=== PATIENT | male | born 1925 | race Caucasian/White ===

== ENCOUNTER 2016-07-15 12:43 | Inpatient (IN) | payer OTHER, MEDICARE ==
[~2016-07-15] VITALS: Ht 175.3 cm; Wt 74.9 kg
--- NOTE | ~2016-07-15 | EKG ---
[address] [place] [address] ELECTROCARDIOGRAM REPORT Name: ZOHRA HASKINSDANY Carnes Room #: 304- ADM IN M.R.#: [id number] Admission: 07/15/16 Attend Phys: Cuate Hermosillo Discharge: Date of : [birth year] Report #: [id number] THIS REPORT FOR: //name// [facility] Test Date: 2016-07-16 Test Time: 07:18:19 Pat Name: TUCKER HASKINS Department: Room: 304 Gender: M Childcare Aide: jocelyne : 1925 Requested By: Yanet Whelan Order Number: [id number] MD: Henry Barrientos Measurements Intervals [place] Rate: 80 P: 75 [place]: 199 QRS: 85 QRSD: 112 T: 60 QT: 489 QTc: 565 Interpretive Statements Sinus rhythm Probable left atrial enlargement LVH with secondary repolarization abnormality Prolonged QT interval No previous ECGs available for comparison Electronically Signed On 07-16-2016 8:36:46 HEALTH PLAN SPECIALIST by Henry Barrientos [email or web address] <ELECTRONICALLY SIGNED> By: Henry Barrientos MD, [facility] 07/16/16 0836 7 7 Henry Barrientos MD, [facility] /EPI
--- NOTE | ~2016-07-15 | 2DMMODE ---
[facility] [address] 2 D/M-MODE ECHOCARDIOGRAM Name: DIVINECEBALLOS L Room #: 304-P [facility] IN ..#: [id number] Admission: 07/15/16 Attend Phys: Cuate Velasquez Discharge: Date of : [birth year] Date of Service: 07/17/16 1121 Report #: [id number] THIS REPORT FOR: //name// Transthoracic Echocardiography Ordering physician: Yanet Whelan Referring physician: Yanet Whelan [employer] Agent: RAN Hendricks Indications/History: SOA, HTN, Cardiomyopathy. BP: 178 / HR: 88bpm Height: 69in Weight: 164.7lb 84 Study data: M-mode, complete 2D, complete spectral Doppler, and color Doppler. Location: Bedside. Routine. Image quality was good. 2D measurements Normal Normal LVID ED 55.6mm 36-57 IVS ED 8.5mm 6-11 LVID ES 44mm 23-40 LVPW ED 9.8mm 6-11 LA volume 47ml/m2 16-28 AoRoot diam 29.3mm 21-37 index ED LVOT diameter 19mm 18-23 Findings: Left ventricle: The cavity size was at the upper limits of normal. Wall thickness was normal. Systolic function was moderately reduced. The estimated ejection fraction was in the range of 35% to 40%. Diffuse hypokinesis. Right ventricle: The cavity size was at the upper limits of normal. Systolic function was normal. Right atrium: The atrium was dilated. Left atrium: The atrium was dilated. Volume index: 47ml/m2 (S). Aortic valve: Trileaflet; mildly thickened, mildly calcified leaflets. Doppler: There was no stenosis. Mild regurgitation. Peak velocity: 104.6cm/s (S). Mitral valve: Mildly calcified annulus. Doppler: There [facility] [address] [place] [address] 2 D/M-MODE ECHOCARDIOGRAM Name: TUCKER HASKINS Room #: 304-P [facility] IN M.R.#: [id number] Admission: 07/15/16 Attend Phys: Cuate Jeter Eva Discharge: Date of : [birth year] Date of Service: 07/17/16 1121 Report #: [id number] was no evidence for stenosis. Moderate regurgitation. Peak E-wave velocity: 81.5cm/s. Peak gradient: 2.7mm Hg (D). Peak A-wave velocity: 78.4cm/s. Tricuspid valve: Structurally normal valve. Doppler: There was no evidence for stenosis. Mild-moderate regurgitation. Regurgitant peak velocity: 414.7cm/s. Peak RV-RA gradient: 69mm Hg (S). Pulmonic valve: Structurally normal valve. Doppler: There was no evidence for stenosis. Trivial regurgitation. Pericardium: There was no pericardial effusion. Aorta: Aortic root: The aortic root was normal in size. Pulmonary artery: Systolic pressure was estimated to be 79mm Hg. Diastolic function: Features are consistent with a pseudonormal left ventricular filling pattern, with concomitant abnormal relaxation and increased filling pressure (grade 2 diastolic dysfunction). Systemic veins: Inferior vena cava: The vessel was dilated; the respirophasic diameter changes were in the normal range (= 50%). Conclusions 1. Left ventricle: The cavity size was at the upper limits of normal. Wall thickness was normal. Systolic function was moderately reduced. The estimated ejection fraction was in the range of 35% to 40%. Diffuse hypokinesis. 2. Right atrium: The atrium was dilated. 3. Left atrium: The atrium was dilated. 4. Aortic valve: Trileaflet; mildly thickened, mildly calcified leaflets. Mild regurgitation. 5. Mitral valve: Mildly calcified annulus. Moderate regurgitation. 6. Pulmonic valve: Trivial regurgitation. 7. Tricuspid valve: Mild-moderate regurgitation. 8. Pulmonary arteries: Systolic pressure was estimated to be 79mm Hg. <ELECTRONICALLY SIGNED> By: Lionel Castañeda MD 07/17/16 1305 1121 1305 Lionel Castañeda MD /itzel
--- NOTE | ~2016-07-15 | EKG ---
[place] [address] [facility] [place] [address] ELECTROCARDIOGRAM REPORT Name: DIVINECEBALLOS L Room #: 170-15 ADM IN M.R.#: [id number] Admission: 07/15/16 Attend Phys: Cuate Hermosillo Discharge: Date of : [birth year] Report #: [id number] THIS REPORT FOR: //name// [facility] ED Test Date: 2016-07-15 Test Time: 13:08:17 Pat Name: TUCKER HASKINS Department: Room: 170 Gender: M Hotel Maintenance Worker: MZOOK : 1925 Requested By: Ashley Jin Order Number: [id number] MD: Kendall Hough Measurements Intervals [place] Rate: 73 P: 74 SD: 201 QRS: 74 QRSD: 90 T: 82 QT: 485 QTc: 535 Interpretive Statements Sinus rhythm Atrial premature complex Probable left atrial enlargement LVH with secondary repolarization abnormality No previous ECG available for comparison Electronically Signed On 07-15-2016 16:51:14 STATEMENT PROCESSOR by Kendall Hough [email or web address] <ELECTRONICALLY SIGNED> By: Kendall Hough MD 07/15/16 1651 D: [id number] Kendall Hough MD /BRIA
--- NOTE | ~2016-07-15 | EKG ---
[address] [address] ELECTROCARDIOGRAM REPORT Name: DIVINECEBALLOS L Room #: 304- ADM IN M.R.#: [id number] Admission: 07/15/16 Attend Phys: Cuate Hermosillo Discharge: Date of : [birth year] Report #: [id number] THIS REPORT FOR: //name// [facility] Test Date: 2016-07-17 Test Time: 07:32:41 Pat Name: TUCKER HASKINS Department: Room: 304 Gender: M Logistics Engineer: jocelyne : 1925 Requested By: Yanet Whelan Order Number: [id number] MD: Kendall Hough Measurements Intervals [place] Rate: 89 P: 67 [place]: 180 QRS: 87 QRSD: 114 T: 39 QT: 463 QTc: 564 Interpretive Statements Sinus rhythm Probable LVH with secondary repol abnrm Electronically Signed On 07-17-2016 8:31:13 NETWORK CONTROL OPERATORS SUPERVISOR by Kendall Hough [email or web address] <ELECTRONICALLY SIGNED> By: Kendall Hough MD 07/17/16 0831 07 Kendall Hough MD /BRIA
--- NOTE | ~2016-07-15 | HC ---
[facility] [address] [place] [address] CONSULTATION Name: ZOHRA HASKINSDANY Carnes Room #: 304-P ADM IN M.R.#: [id number] Admission: 07/15/16 Attend Phys: Cuate Hermosillo Discharge: Date of : [birth year] Report #: [id number] THIS REPORT FOR: //name// CC: Cuate Mckeon DATE OF SERVICE: 07/15/2016 REASON FOR CONSULTATION: Pulmonary infiltrates. IMPRESSION: 1. Right upper lobe infiltrate with bilateral effusions. 2. Chronic kidney disease. 3. Protein-calorie malnutrition. 4. Elevated troponin of 0.5 and proBNP greater than 35,000. 5. Anemia, microcytic. 6. Thrombocytopenia. 7. Possible urinary tract infection. 8. Metabolic acidosis. 9. Acute hypoxemic respiratory failure. 10. History of seizures. PLAN: Agree with current therapy. We will check a troponin, if elevated, this could be congestive heart failure. We will decrease fluids because of this, but be worry because of recent contrast given. We will monitor creatinine. We will do a continue sat monitor. We will keep n.p.o. at present and have speech see, agree with current antibiotic. HISTORY OF PRESENT ILLNESS: History per chart and discussion with caregiver. An 89-year-old male came to the Emergency Room with shortness breath and weakness by report, was recently at [facility] with UTI, pneumonia and sepsis, discharged on amoxicillin. Caregiver relates the patient has been more short of breath. By report, he was pale and diaphoretic on arrival of EMS. The patient complains of shortness breath, no definite chest pain or palpitations. Positive cough. No sputum production currently. PAST MEDICAL HISTORY: Per chart. PAST SURGICAL HISTORY: Include CABG in 1998, colostomy, eye surgery, tonsillectomy, lung surgery, subdural hematoma, TURP, urostomy. HOME MEDICATIONS: Included Augmentin, lisinopril, metoprolol, citalopram, Sinemet, loratadine, Plavix, Flonase, melatonin, trazodone, aspirin, finasteride, and docusate. [facility] [address] [place] [address] CONSULTATION Name: TUCKER HASKINS Room #: 304-P [facility] IN ..#: [id number] Admission: 07/15/16 Attend Phys: Cuate Hermosillo Discharge: Date of : [birth year] Report #: [id number] ALLERGIES: None known. SOCIAL HISTORY: Positive tobacco in the past. FAMILY HISTORY: Positive ETOH in past. REVIEW OF SYSTEMS: Positive cough, shortness of breath, no chest pain, or peripheral edema. PHYSICAL EXAMINATION: VITAL SIGNS: Temperature 98.5, pulse 89, respirations 24, and BP 187/85. EYES: Negative icterus. NECK: Trachea midline. LUNGS: Coarse crackles, right greater than left. HEART: Regular. ABDOMEN: Bowel sounds present, soft. EXTREMITIES: Showed no edema. LABORATORY DATA: CT chest showed no emboli, extensive right upper lobe infiltrate, bilateral effusions, infiltrates and atelectasis. Ostomy noted. Magnesium , BUN 23, creatinine 1.5, and albumin 2.6. UA, 10-30 bacteria, rbc's greater than 20, white count 9.2, hemoglobin 11, platelets 95, bands 6. The pH 7.37, pCO2 of 28, pO2 of 63 on room air. We will follow closely with you. Monitor blood pressure closely. <ELECTRONICALLY SIGNED> By: Yanet Whelan MD 07/16/161831 57 4 Yanet Whelan MD /nt
[~2016-07-15 12:43] MED LIST: BAYER CHEWABLE81 MG PO; CENTRUM SILVER1 EAC4 PO; CHLORDIAZEPOXIDE5 M2 PO; CIPRO500 MG PO; CLONIDINE0.1 PO; COLACE100 MG PO; FINASTERIDE5 MG PO; FLOMAX0.4 MG PO; HYDROCODONE-AP1 EAC6 PO; LEVETIRACETAM750 MG PO; LOPRESSOR50 MG PO; PRINIVIL20 M1 PO; RITALIN5 MG PO; SAW PALMETTO80 MG PO; THERALITH XR T1 EACH PO; URECHOLINE 10 M10 M1 PO; VITAMIN B COMP1 EACH PO; VITAMIN B-1100 M1 PO; VITAMIN D1000 UNIT PO; VITAMINC500 PO
[2016-07-15 12:44] VITALS: BP 148/86
[2016-07-15 13:04] LABS: ABG SAMPLE TYPE ARTERIAL; BE(vivo) -8.3 mmol/L (-2 to +3); HCO3 15.7 mmol/L (22.0-26.0); LACTATE 1.33 mmol/L (0.5-2.0); O2(CT) 14.1 mL/dL (15.0-23.0); O2Hb 90.4 % (92.0-98.0); PCO2 27.7 mmHg (35.0-45.0); PO2 63.2 mmHg (80.0-100.0); tCO2 16.5 mmol/L (24.0-30.0)
[2016-07-15 13:05] LABS: STICK SITE R.RADIAL
[2016-07-15 13:14] LABS: HEMATOCRIT 33.4 % (42.0-52.0); MANUAL DIFF YES; MCH 26.1 pg (26.0-34.0); MCHC 33.1 % (28.0-37.0); PLATELET COUNT 95 thou/uL (150-400); RBC 4.22 mil/uL (4.50-6.00); RDW 18.1 % (10.5-14.5); WBC 9.2 thou/uL (4.0-11.0)
[2016-07-15 13:19] LABS: ANION GAP 11 mmol/L (7-16); BUN 23 mg/dL (7-18); CALCIUM 8.5 mg/dL (8.5-10.1); CHLORIDE 106 mmol/L (98-107); CO2 21 mmol/L (21-32); CREATININE 1.5 mg/dL (0.6-1.3); GLUCOSE 88 mg/dL (70-99); POTASSIUM 4.4 mmol/L (3.5-5.1); SODIUM 138 mmol/L (136-145)
[2016-07-15 13:31] LABS: ALBUMIN 2.6 g/dL (3.4-5.0); ALKALINE PHOSPHATASE 64 U/L (46-116); SGOT 25 U/L (15-37); SGPT 15 U/L (30-65); TOTAL BILIRUBIN 0.6 mg/dL (<0.1-1.0); TOTAL PROTEIN 7.2 g/dL (6.4-8.2)
[2016-07-15 13:36] LABS: URINE BLOOD 3+ (Negative); URINE COLOR YELLOW; URINE GLUCOSE-RANDOM* NEGATIVE (Negative); URINE KETONES TRACE (Negative); URINE NITRITE NEGATIVE (Negative); URINE PROTEIN (DIPSTICK) 2+ (Negative); URINE SPECIFIC GRAVITY 1.025 (1.003-1.035); URINE UROBILINOGEN 0.2 E.U./dl (0.2-1.0)
[2016-07-15 13:42] LABS: ABSOLUTE NEUTROPHILS 5.3 thou/uL (1.4-8.2); ATYPICAL LYMPHS 2 %; TOTAL CELL COUNT 100
[2016-07-15 13:43] LABS: ANISOCYTOSIS 2+
[2016-07-15 13:47] LABS: URINE BILIRUBIN NEGATIVE (Negative)
[2016-07-15 13:49] LABS: SQUAMOUS None Seen /LPF (0-3); URINE RBC >20 Many /HPF (0-2); URINE WBC 6-15 Few /HPF (0-5)
[2016-07-15 13:50] LABS: CRYSTALS None Seen /LPF (None Seen); FINE GRANULAR CASTS 0-3 Few /LPF (None Seen); HYALINE CASTS 0-3 Few /LPF (None Seen)
[2016-07-15 13:52] LABS: NT-PRO BRAIN NAT PEPTIDE > 35000 pg/mL (<300)
[2016-07-15] MEDS ORDERED: TOPROL XL25 MG PO (16:20)
[2016-07-15] MEDS ORDERED: CELEXA20 MG PO (16:21)
[2016-07-15] MEDS ORDERED: SINEMET 25-1001 EAC1 PO (16:22)
[2016-07-15] MEDS ORDERED: AUGMENTIN 875875 MG PO (16:30)
[2016-07-15] MEDS ORDERED: CLARITIN10 M3 PO (16:30)
[2016-07-15] MEDS ORDERED: PLAVIX 75 MG TA75 M1 PO (16:30)
[2016-07-15] MEDS ORDERED: FLONASE 0.05%50 MCG NASAL (16:31)
[2016-07-15] MEDS ORDERED: MELATIN3 MG PO (16:32)
[2016-07-15] MEDS ORDERED: TRAZODONE HCL50 MG PO (16:33)
[2016-07-15 16:40] VITALS: BP 200/89
[2016-07-15 17:00] VITALS: BP 187/85
[2016-07-15 20:00] VITALS: BP 181/83
[2016-07-15 23:01] VITALS: BP 148/110
[2016-07-16] VITALS: BP 158/73
[2016-07-16 00:08] LABS: URINE BILIRUBIN NEGATIVE (Negative); URINE BLOOD 3+ (Negative); URINE COLOR YELLOW; URINE GLUCOSE-RANDOM* NEGATIVE (Negative); URINE KETONES NEGATIVE (Negative); URINE LEUKOCYTES-REFLEX NEGATIVE (Negative); URINE PROTEIN (DIPSTICK) 1+ (Negative); URINE SPECIFIC GRAVITY 1.015 (1.003-1.035); URINE UROBILINOGEN 0.2 E.U./dl (0.2-1.0)
[2016-07-16 00:40] LABS: URINE RBC >20 Many /HPF (0-2); URINE WBC-REFLEX 0-5 Rare /HPF (0-5)
[2016-07-16 00:41] LABS: COARSE GRANULAR CASTS 0-3 Few /LPF (None Seen); CRYSTALS None Seen /LPF (None Seen); FINE GRANULAR CASTS 0-3 Few /LPF (None Seen); SQUAMOUS 0-3 Few /LPF (0-3)
[2016-07-16 04:00] VITALS: BP 179/82
[2016-07-16 06:09] LABS: HEMOGLOBIN 9.2 gm/dL (14.0-18.0); MCH 26.3 pg (26.0-34.0); MCV 79.8 fL (80.0-100.0); PLATELET COUNT 90 thou/uL (150-400); RBC 3.51 mil/uL (4.50-6.00); RDW 18.1 % (10.5-14.5); WBC 8.2 thou/uL (4.0-11.0)
[2016-07-16 06:11] LABS: MANUAL DIFF YES
[2016-07-16 06:31] LABS: ALBUMIN 2.1 g/dL (3.4-5.0); CALCIUM 8.1 mg/dL (8.5-10.1); CREATININE 1.5 mg/dL (0.6-1.3); MAGNESIUM 1.8 mg/dL (1.8-2.4); PHOSPHORUS 3.5 mg/dL (2.5-4.9); POTASSIUM 3.6 mmol/L (3.5-5.1); TROPONIN-I 0.47 ng/mL (<0.04-0.07)
[2016-07-16 07:53] LABS: ABSOLUTE NEUTROPHILS 3.4 thou/uL (1.4-8.2); ATYPICAL LYMPHS 1 %; TOTAL CELL COUNT 100
[2016-07-16 07:54] LABS: ANISOCYTOSIS 1+; HYPOCHROMASIA 1+; POLYCHROMASIA OCCASIONAL
[2016-07-16 09:11] LABS: ABG SAMPLE TYPE ARTERIAL; BE(vivo) -5.5 mmol/L (-2 to +3); HCO3 19.4 mmol/L (22.0-26.0); LACTATE 1.24 mmol/L (0.5-2.0); O2(CT) 14.1 mL/dL (15.0-23.0); O2Hb 95.4 % (92.0-98.0); PCO2 35.6 mmHg (35.0-45.0); PO2 82.9 mmHg (80.0-100.0); STICK SITE L.RADIAL; pH 7.354 (7.360-7.450); sO2 95.8 % (92.0-98.0); tCO2 20.5 mmol/L (24.0-30.0)
[2016-07-16] MEDS ORDERED: LEVETIRACETAM750 MG PO (09:15)
[2016-07-16 09:38] VITALS: BP 181/79
[2016-07-16] MEDS ORDERED: LEVSIN0.125 MG PO (14:06)
[2016-07-16] MEDS ORDERED: LOPRESSOR25 PO (14:07)
[2016-07-16] MEDS ORDERED: ATIVAN0.5 MG PO (14:08)
[2016-07-16] MEDS ORDERED: ACETAMINOPHEN650 M5 PO (14:10)
[2016-07-16 14:24] VITALS: BP 136/61
[2016-07-16 17:08] VITALS: BP 148/66
[2016-07-16 21:00] VITALS: BP 183/62
[2016-07-17] VITALS (7 sets, daily range): BP systolic 136–183; BP diastolic 58–85
[2016-07-17 06:42] LABS: HEMATOCRIT 29.9 % (42.0-52.0); HEMOGLOBIN 9.5 gm/dL (14.0-18.0); MCHC 31.7 % (28.0-37.0); MCV 82.1 fL (80.0-100.0); RBC 3.64 mil/uL (4.50-6.00); RDW 18.2 % (10.5-14.5); WBC 9.9 thou/uL (4.0-11.0)
[2016-07-17 07:13] LABS: ALBUMIN 2.2 g/dL (3.4-5.0); CALCIUM 8.2 mg/dL (8.5-10.1); CREATININE 1.5 mg/dL (0.6-1.3); PHOSPHORUS 3.7 mg/dL (2.5-4.9); POTASSIUM 3.7 mmol/L (3.5-5.1)
[2016-07-17 12:07] LABS: ABG SAMPLE TYPE ARTERIAL; BE(vivo) -6.4 mmol/L (-2 to +3); HCO3 19.6 mmol/L (22.0-26.0); LACTATE 1.08 mmol/L (0.5-2.0); O2(CT) 13.9 mL/dL (15.0-23.0); O2Hb 96.7 % (92.0-98.0); PCO2 40.6 mmHg (35.0-45.0); PO2 107.3 mmHg (80.0-100.0); sO2 97.4 % (92.0-98.0); tCO2 20.8 mmol/L (24.0-30.0)
[2016-07-17 12:08] LABS: STICK SITE L.BRACHIAL; pH 7.301 (7.360-7.450)
[2016-07-17 12:10] LABS: Pressure Support 6 cm H20
[2016-07-18 04:00] VITALS: BP 159/83
[2016-07-18 04:37] LABS: CALCIUM 7.9 mg/dL (8.5-10.1); CREATININE 1.5 mg/dL (0.6-1.3); PHOSPHORUS 2.4 mg/dL (2.5-4.9); POTASSIUM 3.3 mmol/L (3.5-5.1)
[2016-07-18 05:19] LABS: BE(vivo) -6.4 mmol/L (-2 to +3); HCO3 20.2 mmol/L (22.0-26.0); LACTATE 1.36 mmol/L (0.5-2.0); O2(CT) 7.6 mL/dL (15.0-23.0); PCO2 44.7 mmHg (35.0-45.0); sO2 53.6 % (92.0-98.0); tCO2 21.5 mmol/L (24.0-30.0)
[2016-07-18 05:20] LABS: O2Hb 54.6 % (92.0-98.0); PO2 32.1 mmHg (80.0-100.0); pH 7.272 (7.360-7.450)
[2016-07-18 05:21] LABS: ABG SAMPLE TYPE VENOUS
[2016-07-18 05:23] LABS: STICK SITE L.RADIAL
[2016-07-18 08:00] VITALS: BP 183/63
[2016-07-18 10:51] LABS: ABG SAMPLE TYPE ARTERIAL; BE(vivo) -6.6 mmol/L (-2 to +3); HCO3 17.8 mmol/L (22.0-26.0); LACTATE 0.96 mmol/L (0.5-2.0); O2(CT) 13.2 mL/dL (15.0-23.0); O2Hb 97.1 % (92.0-98.0); PCO2 31.5 mmHg (35.0-45.0); PO2 109.3 mmHg (80.0-100.0); pH 7.371 (7.360-7.450); sO2 97.9 % (92.0-98.0); tCO2 18.8 mmol/L (24.0-30.0)
[2016-07-18 10:52] LABS: STICK SITE L.RADIAL
[2016-07-18 12:15] VITALS: BP 160/65
[2016-07-18 17:10] VITALS: BP 167/63
[2016-07-18 20:01] VITALS: BP 157/58
[2016-07-19 04:01] VITALS: BP 166/62
[2016-07-19 06:10] LABS: HEMATOCRIT 25.1 % (42.0-52.0); HEMOGLOBIN 8.2 gm/dL (14.0-18.0); MCH 26.1 pg (26.0-34.0); MCHC 32.5 % (28.0-37.0); MCV 80.3 fL (80.0-100.0); RBC 3.13 mil/uL (4.50-6.00); RDW 18.2 % (10.5-14.5); WBC 6.4 thou/uL (4.0-11.0)
[2016-07-19 06:30] LABS: ALKALINE PHOSPHATASE 45 U/L (46-116); ANION GAP 9 mmol/L (7-16); BUN 18 mg/dL (7-18); CALCIUM 7.7 mg/dL (8.5-10.1); CHLORIDE 122 mmol/L (98-107); CO2 23 mmol/L (21-32); CREATININE 1.4 mg/dL (0.6-1.3); GLUCOSE 123 mg/dL (70-99); MAGNESIUM 1.8 mg/dL (1.8-2.4); PHOSPHORUS 2.1 mg/dL (2.5-4.9); POTASSIUM 3.8 mmol/L (3.5-5.1); SGOT 7 U/L (15-37); SODIUM 154 mmol/L (136-145); TOTAL BILIRUBIN 0.6 mg/dL (<0.1-1.0); TOTAL PROTEIN 5.6 g/dL (6.4-8.2)
[2016-07-19 06:49] LABS: SGPT < 6 U/L (30-65)
[2016-07-19 07:58] VITALS: BP 182/66
[2016-07-19 15:17] VITALS: BP 164/63
[2016-07-19 20:29] VITALS: BP 179/88
[2016-07-20 05:28] VITALS: BP 180/92
[2016-07-20 05:54] LABS: HEMATOCRIT 27.7 % (42.0-52.0); HEMOGLOBIN 8.6 gm/dL (14.0-18.0); MCHC 31.2 % (28.0-37.0); MCV 83.5 fL (80.0-100.0); RBC 3.31 mil/uL (4.50-6.00); WBC 5.7 thou/uL (4.0-11.0)
[2016-07-20 06:07] LABS: MANUAL DIFF YES
[2016-07-20 06:23] LABS: ALBUMIN 2.2 g/dL (3.4-5.0); ALKALINE PHOSPHATASE 42 U/L (46-116); ANION GAP 9 mmol/L (7-16); BUN 19 mg/dL (7-18); CALCIUM 7.9 mg/dL (8.5-10.1); CHLORIDE 117 mmol/L (98-107); CO2 23 mmol/L (21-32); CREATININE 1.4 mg/dL (0.6-1.3); GLUCOSE 156 mg/dL (70-99); MAGNESIUM 1.8 mg/dL (1.8-2.4); POTASSIUM 4.6 mmol/L (3.5-5.1); SGOT 7 U/L (15-37); SODIUM 149 mmol/L (136-145); TOTAL BILIRUBIN 0.6 mg/dL (<0.1-1.0); TOTAL PROTEIN 6.3 g/dL (6.4-8.2)
[2016-07-20 06:51] LABS: SGPT < 6 U/L (30-65)
[2016-07-20 07:25] LABS: ABG SAMPLE TYPE ARTERIAL; BE(vivo) -6.5 mmol/L (-2 to +3); HCO3 20.3 mmol/L (22.0-26.0); LACTATE 0.72 mmol/L (0.5-2.0); O2(CT) 12.5 mL/dL (15.0-23.0); O2Hb 98.4 % (92.0-98.0); PCO2 46.9 mmHg (35.0-45.0); PO2 222.5 mmHg (80.0-100.0); sO2 99.3 % (92.0-98.0); tCO2 21.8 mmol/L (24.0-30.0)
[2016-07-20 07:26] LABS: STICK SITE L.RADIAL; pH 7.255 (7.360-7.450)
[2016-07-20 07:27] LABS: FIO2 50 %
[2016-07-20 07:28] LABS: ABG COMMENT BIPAP 16/8 50%; Pressure Support 8 cm H20
[2016-07-20 08:06] LABS: ABSOLUTE NEUTROPHILS 4.7 thou/uL (1.4-8.2); LARGE PLATELETS FEW; TOTAL CELL COUNT 100
[2016-07-20 08:07] LABS: ANISOCYTOSIS 2+
[2016-07-20 08:31] LABS: PLATELET COUNT 92 thou/uL (150-400)
[2016-07-20 09:04] VITALS: BP 165/57
[2016-07-20 12:00] VITALS: BP 179/83
[2016-07-20 16:00] VITALS: BP 126/50
[2016-07-20 20:05] VITALS: BP 171/71
[2016-07-20 23:22] VITALS: BP 174/73
[2016-07-21 04:40] VITALS: BP 177/80
[2016-07-21 07:33] LABS: PLATELET COUNT 75 thou/uL (150-400); WBC 3.2 thou/uL (4.0-11.0)
[2016-07-21 07:35] LABS: MCH 25.7 pg (26.0-34.0); MCHC 30.8 % (28.0-37.0); MCV 83.4 fL (80.0-100.0); RBC 2.87 mil/uL (4.50-6.00); RDW 19.1 % (10.5-14.5)
[2016-07-21 07:39] LABS: HEMOGLOBIN 7.4 gm/dL (14.0-18.0); MANUAL DIFF YES
[2016-07-21 07:48] LABS: ALBUMIN 1.9 g/dL (3.4-5.0); CALCIUM 7.9 mg/dL (8.5-10.1); CREATININE 1.7 mg/dL (0.6-1.3); POTASSIUM 3.8 mmol/L (3.5-5.1); TOTAL BILIRUBIN 0.6 mg/dL (<0.1-1.0); TOTAL PROTEIN 5.5 g/dL (6.4-8.2)
[2016-07-21 07:59] VITALS: BP 179/80
[2016-07-21 08:36] LABS: TOTAL CELL COUNT 100
[2016-07-21 08:38] LABS: ABSOLUTE NEUTROPHILS 2.4 thou/uL (1.4-8.2)
[2016-07-21 08:39] LABS: ANISOCYTOSIS 1+; LARGE PLATELETS RARE
[2016-07-21 10:45] LABS: ABG SAMPLE TYPE ARTERIAL; BE(vivo) -4.2 mmol/L (-2 to +3); LACTATE 0.95 mmol/L (0.5-2.0); O2(CT) 12.5 mL/dL (15.0-23.0); O2Hb 97.9 % (92.0-98.0); PCO2 38.8 mmHg (35.0-45.0); PO2 129.7 mmHg (80.0-100.0); pH 7.352 (7.360-7.450); sO2 98.5 % (92.0-98.0); tCO2 22.2 mmol/L (24.0-30.0)
[2016-07-21 10:46] LABS: Pressure Support 16 cm H20; STICK SITE L.RADIAL
[2016-07-21 12:29] VITALS: BP 194/59
== END 2016-07-22 04:45 | DRG 871 ==
LOC: ER 12:43 → EROBS 15:08 → 3N 15:08
PROVIDERS: Hospitalist; Internal Medicine Pulmonary Disease; Nurse Practitioner; Nurse Practitioner Family
PROC: 5A09557 Assistance with Respiratory Ventilation, Greater than 96 Consecutive Hours, Continuous Positive Airway Pressure (ICD-10-PCS; principal; 2016-07-18)
PROC: 05HB33Z Insertion of Infusion Device into Right Basilic Vein, Percutaneous Approach (ICD-10-PCS; principal; 2016-07-18)
DX: A41.9 Sepsis, unspecified organism (principal); J69.0 Pneumonitis due to inhalation of food and vomit; J96.01 Acute respiratory failure with hypoxia; N39.0 Urinary tract infection, site not specified; E87.4 Mixed disorder of acid-base balance; I13.0 Hypertensive heart and chronic kidney disease with heart failure and stage 1 through stage 4 chronic kidney disease, or unspecified chronic kidney disease; I42.9 Cardiomyopathy, unspecified; E46 Unspecified protein-calorie malnutrition; R65.20 Severe sepsis without septic shock; I25.10 Atherosclerotic heart disease of native coronary artery without angina pectoris; H91.90 Unspecified hearing loss, unspecified ear; N18.9 Chronic kidney disease, unspecified; D50.9 Iron deficiency anemia, unspecified; D69.6 Thrombocytopenia, unspecified; Z66 Do not resuscitate; E86.0 Dehydration; G31.83 Neurocognitive disorder with Lewy bodies; F02.80 Dementia in other diseases classified elsewhere, unspecified severity, without behavioral disturbance, psychotic disturbance, mood disturbance, and anxiety; G40.909 Epilepsy, unspecified, not intractable, without status epilepticus; Z51.5 Encounter for palliative care; N40.1 Benign prostatic hyperplasia with lower urinary tract symptoms; R33.8 Other retention of urine; I50.9 Heart failure, unspecified; I27.2 Other secondary pulmonary hypertension; E87.6 Hypokalemia; E83.39 Other disorders of phosphorus metabolism; Z68.24 Body mass index [BMI] 24.0-24.9, adult; Z90.79 Acquired absence of other genital organ(s); Z79.02 Long term (current) use of antithrombotics/antiplatelets; Z95.1 Presence of aortocoronary bypass graft; Z93.3 Colostomy status; Z98.890 Other specified postprocedural states; Z87.891 Personal history of nicotine dependence; Z79.82 Long term (current) use of aspirin; Z79.899 Other long term (current) drug therapy
CPT/HCPCS: 10096; 27000